=== PATIENT | female | born 1995 | race Caucasian/White ===

== ENCOUNTER 2016-11-21 14:12 | Emergency (ER) | payer SELFPAY ==
[~2016-11-21] VITALS: Ht 71.1 cm; Wt 61.0 kg
[2016-11-21 14:29] VITALS: Ht 71.1 cm; Wt 61.0 kg
[2016-11-21 15:54] LABS: BASOPHIL # 0.1 10^3/ul (0.0-0.1); BASOPHILS % 0.7 % (0.0-2.0); EOSINOPHILS # 0.1 10^3/ul (0.0-0.5); EOSINOPHILS % 1.4 % (0.0-7.0); HEMATOCRIT 39.8 % (37.0-47.0); HEMOGLOBIN 13.1 g/dl (12.0-16.0); LYMPHOCYTES # 2.4 10^3/ul (0.8-2.9); LYMPHOCYTES % 26.5 % (15.0-51.0); MEAN CORPUSCULAR HEMOGLOBIN 29.2 pg (29.0-33.0); MEAN CORPUSCULAR HGB CONC 32.9 g/dl (32.0-37.0); MEAN CORPUSCULAR VOLUME 88.6 fl (82.0-101.0); MEAN PLATELET VOLUME 9.4 fl (7.4-10.4); MONOCYTE # 0.6 10^3/ul (0.3-0.9); MONOCYTES % 6.6 % (0.0-11.0); NEUTROPHIL # 5.9 10^3/ul (1.6-7.5); NEUTROPHILS % 64.6 % (39.0-77.0); PLATELET COUNT 467 10^3/UL (140-415); RED BLOOD COUNT 4.49 10^6/ul (4.20-5.40); RED CELL DISTRIBUTION WIDTH 12.4 % (11.5-14.5); WHITE BLOOD COUNT 9.1 10^3/ul (4.8-10.8)
[2016-11-21 16:28] LABS: ADD UMIC YES; UR ASCORBIC ACID NEGATIVE (NEGATIVE); UR BILIRUBIN (Dip) NEGATIVE (NEGATIVE); UR BLOOD (Dip) 3+ mg/dL (NEGATIVE); UR CLARITY SLIGHTLY CLOUDY (CLEAR); UR COLOR YELLOW (YELLOW); UR GLUCOSE (Dip) NEGATIVE (NEGATIVE); UR KETONES (Dip) NEGATIVE (NEGATIVE); UR LEUKOCYTE ESTERASE (Dip) NEGATIVE Leu/ul (NEGATIVE); UR MUCUS MANY /HPF (NONE SEEN); UR NITRITE (Dip) NEGATIVE (NEGATIVE); UR RBC 93 /HPF (0-5); UR SPECIFIC GRAVITY (Dip) 1.023 (1.003-1.030); UR SQUAMOUS EPITHELIAL CELL FEW /HPF (FEW); UR TOTAL PROTEIN (Dip) NEGATIVE (NEGATIVE); UR UROBILINOGEN (Dip) NEGATIVE (NEGATIVE)
--- NOTE | 2016-11-21 16:32 | ERD ---
ER Documentation Chief Complaint Date/Time DATE: 11/21/16 TIME: 16:28 Chief Complaint Complains of vag bleed since 10/09 HPI This is a 21-year-old female who presents the emergency department today complaining of vaginal bleeding since October 09. States she had some mild pelvic pain. Denies any dysuria. Denies being sexually active ever. Denies any fevers or chills. ROS All systems reviewed and are negative except as per history of present illness. Medications Home Meds Active Scripts Medroxyprogesterone Acetate* (Provera*) 10 Mg Tablet, 10 MG PO DAILY for 5 Days , TAB Prov:NATI KANG PA-C 11/21/16 Allergies Allergies: Coded Allergies: No Known Allergy (Unverified , 11/21/16) PMhx/Soc Medical and Surgical Hx: pt denies Medical Hx, pt denies Surgical Hx Hx Alcohol Use: No Hx Substance Use: No Hx Tobacco Use: No Smoking Status: Never smoker Physical Exam Vitals Vital Signs Date Time Temp Pulse Resp B/P Pulse Ox O2 Delivery O2 Flow Rate FiO2 11/21/16 14:29 98.6 70 20 130/67 99 Physical Exam Const: NAD Head: Atraumatic Eyes: Normal Conjunctiva ENT: Normal External Ears, Nose and Mouth. Neck: Full range of motion..~ No meningismus. Resp: Clear to auscultation bilaterally Cardio: Regular rate and rhythm, no murmurs Abd: Soft, mild suprapubic tender, non distended. Normal bowel sounds no tenderness to McBurney's. Skin: No petechiae or rashes Back: No midline or flank tenderness Ext: No cyanosis, or edema Neur: Awake and alert Psych: Normal Mood and Affect Result Diagram: 11/21/16 1540 Results 24 hrs Laboratory Tests Test 11/21/16 15:40 White Blood Count 9.110^3/ul Red Blood Count 4.4910^6/ul Hemoglobin 13.1g/dl Hematocrit 39.8% Mean Corpuscular Volume 88.6fl Mean Corpuscular Hemoglobin 29.2pg Mean Corpuscular Hemoglobin Concent 32.9g/dl Red Cell Distribution Width 12.4% Platelet Count 66592^3/UL Mean Platelet Volume 9.4fl Neutrophils % 64.6% Lymphocytes % 26.5% Monocytes % 6.6% Eosinophils % 1.4% Basophils % 0.7% Nucleated Red Blood Cells % 0.0/100WBC Neutrophils # 5.910^3/ul Lymphocytes # 2.410^3/ul Monocytes # 0.610^3/ul Eosinophils # 0.110^3/ul Basophils # 0.110^3/ul Nucleated Red Blood Cells # 0.010^3/ul Urine Color YELLOW Urine Clarity SLIGHTLY CLOUDY Urine pH 6.0 Urine Specific Ponce 1.023 Urine Ketones NEGATIVEmg/dL Urine Nitrite NEGATIVEmg/dL Urine Bilirubin NEGATIVEmg/dL Urine Urobilinogen NEGATIVEmg/dL Urine Leukocyte Esterase NEGATIVELeu/ul Urine Microscopic RBC 93/HPF Urine Microscopic WBC 2/HPF Urine Squamous Epithelial Cells FEW/HPF Urine Mucus MANY/HPF Urine Hemoglobin 3+mg/dL Urine Glucose NEGATIVEmg/dL Urine Total Protein NEGATIVEmg/dl OSTIC IMAGING REPORT Patient: WILLA DUKE : 1995 Age: 21 Sex: F MR #: [id number] DOS: 11/21/16 0000 Ordering MD: NATI KANG PA-C Location: [facility] Room/Bed: PROCEDURE: US Pelvis. CLINICAL INDICATION: Vaginal bleeding TECHNIQUE: Multiple sonographic images of the pelvis were obtained utilizing a transabdominal technique. The images were reviewed on a PACS workstation. COMPARISON: None. FINDINGS: The uterus is visualized and measures 6 x 2.8 x 4.7 cm in size. The endometrial echo complex is normal and measures 5.6 mm. There is no evidence for free fluid. The bilateral ovaries are not well visualized secondary to overlying bowel gas. No adnexal masses are noted. IMPRESSION: 1. Nonvisualization of the bilateral ovaries secondary to overlying bowel gas. 2. Otherwise, unremarkable transabdominal pelvic ultrasound. RPTAT: HPNM Physician Araseli Date Time Electronically viewed and signed by Physician Araseli on 11/21/2016 16 :39 / CC: NATI KANG PA-C Procedures/MDM This is a 21-year-old female who presents the emergency department today complaining of vaginal bleeding since October 09. Given patients complaints I did obtain laboratory workup as well as imaging. Laboratory workup elevated white blood cell count. She is not anemic. Platelets are mildly elevated. UA is negative for infection or there are 93 microscopic red blood cells. urine test is negative pelvic ultrasound shows nonvisualization of bilateral ovaries secondary to overlying bowel gas. There is no evidence for free fluid. There are no adnexal masses noted. Unremarkable transabdominal pelvic ultrasound. Symptoms at this time is consistent with dysfunctional uterine bleeding. No evidence to suggest anemia at this time. I discussed the patient with Dr. William and he has recommended giving the patient a prescription for Provera for 5 days. Patient does not have a primary care doctor or cross tie turner. I have given her a list of community resources. At this time the patient is stable for discharge and outpatient management. Patient should follow up with their PCP in the next 1-2 days. They may return to the emergency department sooner for any persistent or worsening of symptoms. Patient understood and agreed with the plan. Departure Diagnosis: Primary Impression: Vaginal bleeding Condition: Fair NATI KANG PA-C Nov 21, 2016 16:32
--- NOTE | 2016-11-21 16:39 | RADRPT ---
PROCEDURE: US Pelvis. CLINICAL INDICATION: Vaginal bleeding TECHNIQUE: Multiple sonographic images of the pelvis were obtained utilizing a transabdominal tech nique. The images were reviewed on a PACS workstation. COMPARISON: None. FINDINGS: The uterus is visualized and measures 6 x 2.8 x 4.7 cm in size. The endometrial echo complex is nor mal and measures 5.6 mm. There is no evidence for free fluid. The bilateral ovaries are not well vis ualized secondary to overlying bowel gas. No adnexal masses are noted. IMPRESSION: 1. Nonvisualization of the bilateral ovaries secondary to overlying bowel gas. 2. Otherwise, unremarkable transabdominal pelvic ultrasound. RPTAT: HPNM Physician Araseli Date Time Electronically viewed and signed by Physician Araseli on 11/21/2016 16:39 /
[2016-11-21] MEDS ORDERED: MEDR10TA2 PO (17:13)
[2016-11-21 17:21] VITALS: BP 114/65; PULSE 72; RESP 19; TEMP 98.3
== END 2016-11-21 17:42 | disposition home or self-care (01) ==
LOC: FTE 14:12
DX: N93.8 Other specified abnormal uterine and vaginal bleeding (principal)
CPT/HCPCS: 76856; 81001; 85025